=== PATIENT | female | born 1970 | race American Indian/Alaskan Native ===

== ENCOUNTER 2019-03-01 12:16 | Emergency (ER) | payer SELFPAY ==
[2019-03-01] MEDS ORDERED: PROVENTIL IH ONE (12:23)
[2019-03-01] MEDS ORDERED: DECADRON IV ONE (12:23)
[2019-03-01] MEDS ORDERED: ATROVENT IH ONE (12:23)
--- NOTE | 2019-03-01 12:23 | Emergency Department Report ---
Blank Doc - Documentation Documentation: 48-year-old female that presents with SOB and wheezing. This initial assessment/diagnostic orders/clinical plan/treatment(s) is/are subject to change based on patient's health status, clinical progression and re- assessment by fellow clinical providers in the ED. Further treatment and workup at subsequent clinical providers discretion. Patient/guardians urged not to elope from the ED as their condition may be serious if not clinically assessed and managed. Initial orders include: 1- Patient sent to [facility] for further evaluation and treatment 2- breathing treatment/steroids
--- NOTE | 2019-03-01 15:17 | Emergency Department Report ---
ED General Adult HPI - General Chief complaint: Dyspnea/Respdistress Stated complaint: ASTHMA Time Seen by Provider: 03/01/19 12:23 Source: patient Mode of arrival: Ambulatory Limitations: No Limitations - History of Present Illness Initial comments: Patient presents to the emergency department with chief complaint of shortness of breath. Patient has a history of asthma and states that she's had a recent upper respiratory tract infection with a cough which normally triggers for asthma. Patient states that she took a recent trip via plane have multiple sick exposures. 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 Patient denies michelle chest pain but does endorse chest pain with cough only. -: Gradual Consistency: constant Improves with: none Worsens with: none Associated Symptoms: denies other symptoms Treatments Prior to Arrival: none - Related Data Previous Rx's Medication Instructions Recorded Last Taken Type ALBUTEROL Inhaler (OR & NICU) 2 puff IH Q4HR PRN #1 inhalation 03/01/19 Unknown Rx [ProAir HFA Inhaler] Albuterol Sulfate [Albuterol 0.63% 0.63 mg IH Q4HR PRN #30 ml 03/01/19 Unknown Rx NEBS] Amoxicillin [Amoxicillin TAB] 875 mg PO BID #14 tablet 03/01/19 Unknown Rx Azithromycin [Zithromax Z-COLIN] 250 mg PO DAILY #6 tablet 03/01/19 Unknown Rx Codeine Phosphate/Guaifenesin 180 ml PO Q12HR PRN #180 liquid 03/01/19 Unknown Rx [Guaifenesin-Codeine Syrup] Ibuprofen [Motrin] 800 mg PO Q8HR PRN #30 tablet 03/01/19 Unknown Rx predniSONE [Deltasone] 20 mg PO DAILY #15 tablet 03/01/19 Unknown Rx Allergies Allergy/AdvReac Type Severity Reaction Status Date / Time shellfish derived Allergy Swelling Verified 03/01/19 12:18 ED Review of Systems ROS: Stated complaint: ASTHMA Other details as noted in HPI Constitutional: denies: chills, fever Eyes: denies: eye pain, eye discharge, vision change ENT: denies: ear pain, throat pain Respiratory: cough, shortness of breath. denies: wheezing Cardiovascular: denies: chest pain, palpitations Endocrine: no symptoms reported Gastrointestinal: denies: abdominal pain, nausea, diarrhea Genitourinary: denies: urgency, dysuria, discharge Musculoskeletal: denies: back pain, joint swelling, arthralgia Skin: denies: rash, lesions Neurological: denies: headache, weakness, paresthesias Psychiatric: denies: anxiety, depression Hematological/Lymphatic: denies: easy bleeding, easy bruising ED Past Medical Hx - Past Medical History Hx Asthma: Yes - Surgical History Additional Surgical History: TUBAL - Social History Smoking Status: Never Smoker Substance Use Type: Alcohol - Medications Home Medications: Home Medications Medication Instructions Recorded Confirmed Last Taken Type ALBUTEROL Inhaler (OR & NICU) 2 puff IH Q4HR PRN #1 inhalation 03/01/19 Unknown Rx [ProAir HFA Inhaler] Albuterol Sulfate [Albuterol 0.63% 0.63 mg IH Q4HR PRN #30 ml 03/01/19 Unknown Rx NEBS] Amoxicillin [Amoxicillin TAB] 875 mg PO BID #14 tablet 03/01/19 Unknown Rx Azithromycin [Zithromax Z-COLIN] 250 mg PO DAILY #6 tablet 03/01/19 Unknown Rx Codeine Phosphate/Guaifenesin 180 ml PO Q12HR PRN #180 liquid 03/01/19 Unknown Rx [Guaifenesin-Codeine Syrup] Ibuprofen [Motrin] 800 mg PO Q8HR PRN #30 tablet 03/01/19 Unknown Rx predniSONE [Deltasone] 20 mg PO DAILY #15 tablet 03/01/19 Unknown Rx ED Physical Exam - General Limitations: No Limitations General appearance: alert, in no apparent distress - Head Head exam: Present: atraumatic, normocephalic - Eye Eye exam: Present: normal appearance, PERRL, EOMI - ENT ENT exam: Present: mucous membranes moist - Neck Neck exam: Present: normal inspection - Respiratory Respiratory exam: Present: wheezes (and expiratory wheezing on exam). Absent: respiratory distress - Cardiovascular Cardiovascular Exam: Present: regular rate, normal rhythm. Absent: systolic murmur, diastolic murmur, rubs, gallop - GI/Abdominal GI/Abdominal exam: Present: soft, normal bowel sounds. Absent: distended, tenderness - Extremities Exam Extremities exam: Present: normal inspection - Back Exam Back exam: Present: normal inspection - Neurological Exam Neurological exam: Present: alert, oriented X3, CN II-XII intact. Absent: motor sensory deficit - Psychiatric Psychiatric exam: Present: normal affect, normal mood - Skin Skin exam: Present: warm, dry, intact, normal color. Absent: rash ED Course Vital Signs 03/01/19 12:22 Temperature 98.8 F Pulse Rate 116 H Respiratory 18 Rate Blood Pressure 130/64 O2 Sat by Pulse 100 Oximetry ED Medical Decision Making - Medical Decision Making Patient improved after breathing treatment in the ED Plan of care discussed Critical care attestation.: If time is entered above; I have spent that time in minutes in the direct care of this critically ill patient, excluding procedure time. ED Disposition Clinical Impression: Asthma, Pharyngitis Disposition: - TO HOME OR SELFCARE Is pt being admited?: No Does the pt Need Aspirin: No Condition: Stable Instructions: Asthma (ED), Pharyngitis (ED) Additional Instructions: return if worse Prescriptions: Albuterol Sulfate [Albuterol 0.63% NEBS] 0.63 mg IH Q4HR PRN #30 ml PRN Reason: Wheezing Amoxicillin [Amoxicillin TAB] 875 mg PO BID #14 tablet predniSONE [Deltasone] 20 mg PO DAILY #15 tablet Codeine Phosphate/Guaifenesin [Guaifenesin-Codeine Syrup] 180 ml PO Q12HR PRN #180 liquid PRN Reason: pain Ibuprofen [Motrin] 800 mg PO Q8HR PRN #30 tablet PRN Reason: Pain ALBUTEROL Inhaler (OR & NICU) [ProAir HFA Inhaler] 2 puff IH Q4HR PRN #1 inhalation PRN Reason: Shortness Of Breath Azithromycin [Zithromax Z-COLIN] 250 mg PO DAILY #6 tablet Referrals: MITCHELL POWER MD [Staff Physician] - 3-5 Days [facility] [Provider Group] - 3-5 Days [facility] [Provider Group] - 3-5 Days Forms: Work/School Release Form(ED) Time of Disposition: 15:14
[2019-03-01 15:44] VITALS: BP 101/61
== END 2019-03-01 15:44 | disposition home or self-care (01) ==
LOC: ED 12:16
DX: J45.909 Unspecified asthma, uncomplicated (principal); Z98.51 Tubal ligation status; Z79.899 Other long term (current) drug therapy; Z91.013 Allergy to seafood
CPT/HCPCS: 94644; 96374; 99283; J1100